=== PATIENT | female | born 1960 | race Caucasian/White ===

== ENCOUNTER 2017-10-03 08:56 | Emergency (ER) | payer OTHER, BC ==
[~2017-10-03] VITALS: Ht 154.9 cm; Wt 75.0 kg
[~2017-10-03 08:56] MED LIST: CALC600T34 PO; ESTR.3 PO; NAPR550 PO; OMEP20TA OR
[2017-10-03 09:01] VITALS: BP 142/69; PULSE 65; RESP 16; TEMP 98; O2SAT 98
[2017-10-03] MEDS ORDERED: KETOROLAC TROMETHAMINE 60 MG/2 ML (IM) VIAL IM ONE (09:15)
[2017-10-03] MEDS ORDERED: METHOCARBAMOL 500 MG TAB PO ONE (09:15)
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
[2017-10-03] MEDS ORDERED: OMEP20TA93 PO (09:20)
[2017-10-03] MEDS ORDERED: ASPI81CH6 CHEW (09:20)
[2017-10-03] MEDS ORDERED: VITATAB56 PO (09:20)
[2017-10-03] MEDS ORDERED: VITA100T54 PO (09:20)
[2017-10-03] MEDS ORDERED: OXYB5TAB8 PO (09:20)
[2017-10-03] MEDS ORDERED: OMEGCAP PO (09:20)
[2017-10-03] MEDS ORDERED: FURO1TAB62 PO (09:20)
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
[2017-10-03] MEDS ORDERED: ROBA750T PO (10:06)
[2017-10-03] MEDS ORDERED: IBUP-232 PO (10:06)
== END 2017-10-03 10:17 | disposition home or self-care (01) ==
LOC: PHED 08:56
DX: S20.219A Contusion of unspecified front wall of thorax, initial encounter (principal); Z87.19 Personal history of other diseases of the digestive system; Z87.448 Personal history of other diseases of urinary system; Z87.42 Personal history of other diseases of the female genital tract; V89.2XXA Person injured in unspecified motor-vehicle accident, traffic, initial encounter
CPT/HCPCS: 71010; 71120; 96372; 99284; J1885

== ENCOUNTER 2017-11-27 09:39 | Emergency (ER) | payer BC, OTHER ==
[~2017-11-27] VITALS: Ht 180.3 cm; Wt 75.8 kg
[~2017-11-27 09:39] MED LIST changes: +ASPI81CH6 CHEW; -CALC600T34 PO; -ESTR.3 PO; +FURO1TAB62 PO; +IBUP-232 PO; -NAPR550 PO; +OMEGCAP PO; -OMEP20TA OR; +OMEP20TA93 PO; +OXYB5TAB8 PO; +ROBA750T PO; +VITA100T54 PO; +VITATAB56 PO
[2017-11-27 09:44] VITALS: BP 120/66; PULSE 73; RESP 16; TEMP 97.9; O2SAT 94
[2017-11-27] MEDS ORDERED: CITA10TA4 PO (10:11)
[2017-11-27] MEDS ORDERED: VITACAP7 PO (10:11)
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
[2017-11-27] MEDS ORDERED: oxyCODONE/ACETAMINOPHEN 5 MG/325 MG TAB PO ONE (10:45)
[2017-11-27] MEDS ORDERED: PERC5TAB12 PO (10:57)
--- NOTE | 2017-11-27 10:57 | PD ---
HPI Chief Complaint: Injury Time Seen by Provider: 09:52 Travel History International Travel<30 days: No Contact w/Intl Traveler<30days: No Traveled to known affect area: No History of Present Illness HPI This is a 57-year-old female here with left elbow pain after she fell from a standing position onto an outstretched hand. Pain localized within the elbow. She reports when the injury occurred her elbow appeared dislocated. She denies paresthesia or weakness of the extremity. Pain is constant and worse with movement. Heart is held in slight flexion. She denies any other injury. PFSH Past Medical History Blood Disorders: No Anxiety: No Cancer: No Cardiovascular Problems: No Diminished Hearing: No Endocrine: No Gastrointestinal Disorders: Yes GERD: Yes Genitourinary: Yes Immune Disorder: No Kidney Stones: Yes Musculoskeletal: No Neurologic: No Psychiatric: No Reproductive: Yes (prolapsed uterus) Respiratory: No Tetanus Vaccination: < 5 Years Influenza Vaccination: Yes ?: Not Menopausal: Yes Past Surgical History Abdominal Surgery: Yes Body Medical Devices: jewelry pierced navel Cardiac Surgery: No Cholecystectomy: Yes Ear Surgery: No Endocrine Surgery: No Eye Surgery: No Genitourinary Surgery: No Gynecologic Surgery: Yes (LUMPECTOMY AND BREAST AUGMENTATION) Hysterectomy: Yes Oral Surgery: No Thoracic Surgery: No Tonsillectomy: Yes Other Surgery: Yes (T/A()/ BREAST AUGMENTATION (1999) lap chol 2004) Social History Alcohol Use: Yes (OCCASIONALLY) Tobacco Use: No Substance Use: No Allergies-Medications (Allergen,Severity, Reaction): Coded Allergies: bupropion (Verified Allergy, Severe, HIVES, 11/27/17) codeine (Verified Allergy, Unknown, NOT ALLERGIC; DOES NOT LIKE., 11/27/17) Reported Meds & Prescriptions Reported Meds & Active Scripts Active Reported Citalopram (Citalopram Hydrobromide) 10 Mg Tab 10 Mg PO DAILY B Complex (B-Complex Vitamins) 1 Cap 1 Cap PO DAILY Vitamin D-400 (Cholecalciferol) 400 Unit Tab Unknown Dose PO DAILY Aspirin Low Dose (Aspirin) 81 Mg Chew 81 Mg CHEW DAILY Ditropan (Oxybutynin Chloride) 5 Mg Tab Unknown Dose PO Q12HR [place]-3 Fish Oil/Vitamin (Fish Oil-Cholecalciferol) 1,000-1,000 Mg Cap Unknown Dose PO DAILY Omeprazole 20 Mg Tab 20 Mg PO DAILY Review of Systems Except as stated in HPI: all other systems reviewed are Neg General / Constitutional: No: Fever Eyes: No: Visual changes HENT: No: Headaches Cardiovascular: No: Chest Pain or Discomfort Respiratory: No: Shortness of Breath Gastrointestinal: No: Abdominal Pain Genitourinary: No: Dysuria Physical Exam Narrative GENERAL: Alert and well-appearing female. SKIN: Warm and dry. HEAD: Normocephalic. Atraumatic. EYES: No scleral icterus. No injection or drainage. NECK: Supple, trachea midline. No JVD or lymphadenopathy. CARDIOVASCULAR: Regular rate and rhythm without murmurs, gallops, or rubs. RESPIRATORY: Breath sounds equal bilaterally. No accessory muscle use. GASTROINTESTINAL: Abdomen soft, non-tender, nondistended. MUSCULOSKELETAL: No cyanosis, or edema. Left upper extremity: Generalized tenderness to the left elbow. No deformity noted. The arms being held in flexion against the body. 2+ brachial and radial pulse. Normal sensation. Brisk cap refill. BACK: Nontender without obvious deformity. No CVA tenderness. Data Data Last Documented VS Vital Signs Date Time Temp Pulse Resp B/P (MAP) Pulse Ox O2 Delivery O2 Flow Rate FiO2 11/27/17 09:44 97.9 73 16 120/66 (84) 94 Orders Orders Humerus (Min 2vws) (11/27/17 ) Forearm (2vws) (11/27/17 ) Oxycodone-Acetamin 5-325 Mg (Percocet (11/27/17 10:45) MDM Medical Decision Making Medical Screen Exam Complete: Yes Emergency Medical Condition: Yes Differential Diagnosis Humerus fracture, elbow fracture, forearm fracture, dislocation Narrative Course 57-year-old female here with left elbow pain after she fell onto an outstretched arm. Diagnosis Primary Impression: Radial head fracture Qualified Codes: S52.122A - Displaced fracture of head of left radius, initial encounter for closed fracture Referrals: Terell Arguelles MD Orthopedist Additional Instructions: Splint and Sling as directed. Pain medication as directed. Call tomorrow and Make an appointment for follow-up with orthopedic this week. Return to emergency department if he developed severe increasing pain, altered sensation of the hand or arm, change in coloration of the fingers. Scripts Oxycodone-Acetaminophen (Percocet) 5-325 mg Tab 1 TAB PO Q6H Y for PAIN, #12 TAB 0 Refills Prov: Mandy Gomez 11/27/17 Disposition: 01 DISCHARGE HOME Condition: Stable Mandy Gomez Nov 27, 2017 10:57
[2017-12-02] MEDS ORDERED: HYDR-3366 PO (08:23)
== END 2017-11-27 11:28 | disposition home or self-care (01) ==
LOC: PHEFT 09:39
DX: S52.122A Displaced fracture of head of left radius, initial encounter for closed fracture (principal); Z88.5 Allergy status to narcotic agent; W19.XXXA Unspecified fall, initial encounter
CPT/HCPCS: 29105; 73060; 73090